=== PATIENT | male | born 1990 | race Two or more races ===

== ENCOUNTER 2021-07-22 12:55 | Outpatient (REF) | payer MEDICAID, SELFPAY ==
[2021-07-22 14:03] LABS: COVID-19 Test Negative (Negative)
== END 2021-07-22 12:56 | disposition home or self-care (01) ==
LOC: HO.LAB 12:55
PROVIDERS: Visit Provider Internal Medicine
DX: Z20.822 Contact with and (suspected) exposure to COVID-19 (principal)
CPT/HCPCS: 87635; C9803

== ENCOUNTER 2022-07-01 15:10 | Emergency (ER) | payer MEDICAID, SELFPAY ==
[2022-07-01 15:19] VITALS: BP 163/92; PULSE 95; O2SAT 100
== END 2022-07-01 16:30 | disposition left against medical advice (07) ==
PROVIDERS: Emergency Provider Emergency Medicine
DX: R51.9 Headache, unspecified (principal); M79.10 Myalgia, unspecified site; Z20.822 Contact with and (suspected) exposure to COVID-19

== ENCOUNTER 2022-08-05 16:17 | Emergency (ER) | payer MEDICAID, SELFPAY ==
--- NOTE | ~2022-08-05 | XR_ITS ---
EXAMINATION: CR X-RAY HAND AND WRIST LEFT CLINICAL INFORMATION: Left hand and wrist pain status post injury. COMPARISON: None TECHNIQUE: 4 views of the left hand and wrist are obtained. FINDINGS: There is no acute fracture or dislocation. The joint spaces are unremarkable. The carpal bones are normally aligned. The distal radius and ulna are intact with the soft tissues are unremarkable. XR/XR hand wrist LT IMPRESSION: Unremarkable left hand and wrist.
[2022-08-05 16:26] VITALS: BP 146/89; PULSE 71; RESP 18; TEMP 36.6; O2SAT 100; BMI 36.8
--- NOTE | 2022-08-05 16:26 | ED_ITS ---
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 Patient reports he fell and caught himself with his left hand. Since then he has had intermittent pain in the left wrist. No associated weakness, numbness or tingling. Related Data Allergies Allergy/AdvReac Type Severity Reaction Status Date / Time No Known Allergies Allergy Unverified 03/21/20 16:53 Review of Systems Review of Systems: Yes all other systems are reviewed and are negative Constitutional: Constitutional: Reports no additional constitutional complaints, Denies body ache(s), Denies chills, Denies fever(s), Denies headache(s) and Denies weakness Eyes: Eyes: Reports no additional eye complaints and Denies change in vision ENT: Reports system reviewed and no additional complaints, except as documented, Denies dizziness, Denies headache(s), Denies nasal congestion, Denies nasal discharge and Denies neck pain Cardiovascular: Cardiovascular: Reports no additional cardiovascular complaint s, Denies chest pain, Denies leg edema and Denies dyspnea Respiratory: Respiratory: Reports no additional respiratory complaints, Denies cough and Denies dyspnea Gastrointestinal: Gastrointestinal: Reports no additional gastrointestinal complaints, Denies abdominal pain, Denies diarrhea, Denies nausea and Denies vomiting Genitourinary: Genitourinary: Denies urinary incontinence Musculoskeletal: Musculoskeletal: Reports no additional musculoskeletal complaints, Denies back pain, Reports arthralgias, Denies joint swelling, Denies neck pain, Denies numbness and Denies tingling Integumentary/Breasts: Skin/Breast: Reports system reviewed and no additional complaints, except as docu and Denies rash Neurologic: Reports system reviewed and no additional complaints, except as documented, Denies Abnormal speech present, Denies dizziness, Denies headache(s), Denies numbness, Denies tingling and Denies weakness PMFSH Past Medical History Attestation statement: The following information was validated with the patient. Source: old records reviewed and nursing notes reviewed Social History Social History Advance Directives: No Advance Directives Information Provided: Yes Physical Exam Vital Signs: Vital Signs: Last Vital Signs Temp 97.9 F 08/05/22 16:26 Pulse 71 08/05/22 16:26 Resp 18 08/05/22 16:26 BP 146/89 H 08/05/22 16:26 Pulse Ox 100 08/05/22 16:26 O2 Del Method 08/05/22 16:26 BMI result Body Mass Index 36.8 Const: General: cooperative, healthy appearing, comfortable and no acute distress Orientation/consciousness: patient oriented x3 Limitations: no limitations HEENT: Head: Yes normal to inspection Ears: hearing grossly normal bilaterally General nose exam: Normal external nose present Face and sinus: Yes normal facial exam Mouth: Normal oral and palatal mucosa present Throat: Yes posterior oropharynx normal Eyes: General: appearance normal, both eyes and all related structures Pupils: Equal, round and reactive pupils present Neck: Neck: Yes normal visual inspection Chest: Chest palpation & inspection: normal inspection of the chest Resp: Effort & Inspection: normal respiratory effort Auscultation: clear to auscultation bilaterally Cardio: Rate: regular rate Rhythm: regular rhythm Peripheral pulses: Peripheral pulses 2+ throughout GI: Inspection: Yes normal to inspection Palpation (GI): Soft to palpation and nontender Auscultation: normal bowel sounds Back/Spine/Pelvis: Thoracic/Lumbar Spine: thoracic and lumbar spine normal to inspection Skin: General skin exam: no rashes or lesions noted Neuro: General: patient oriented x3, no focal motor deficits and normal sensation to monofilament Cranial nerves: Yes Equal, round and reactive pupils present Cognition (Neuro): normal cognition Speech: No Abnormal speech present Gait exam (Neuro): Normal gait present Motor exam (neuro): 5/5 motor strength present throughout Extrem: Other: Patient with tenderness over the left wrist over the volar aspect. There is full range of motion of the hand in of the elbow with no difficulty. Patient has pain with flexion of the wrist but is able to. Palpable radial and ulnar pulses with no difficulty. Normal sensation. No snuffbox tenderness General: Yes normal to inspection Course Course Course Narrative: This is rapid medical exam. Deferred HPI, ROS, PE to primary provider. 32 yo male right hand dominant here with left wrist pain after injury one month ago. will check x-rays . vss Reevaluation(s) Reevaluation #1: X-rays are normal. Likely sprain. Patient given wrist splint for comfort. Reviewed rice. Reviewed worrisome signs and symptoms of when to return to the emergency room. Comfortable plan for discharge home. Medical Decision Making Medical Decision Making [facility] Narrative: 32-year-old male [id number] here with left wrist pain after an injury which occurred 1 month ago with continued intermittent pain. Patient was some tenderness over the volar aspect of the left wrist. Due to persistent symptoms will check x-rays to rule out underlying fracture. Likely sprain. Differential Diagnosis Differential Diagnoses: The differential diagnosis associated with the presentation includes Sprain, fracture Independent Interpretation I performed an independent interpretation of an: Plain X-Ray Interpretation: I have interpreted the x-ray of the left hand and wrist and agree with the radiologist reading Radiology Impression Discussion of test interpretation with radiology: I have reviewed the radiologist's reading. Radiologist Impression: [place] [id number] XRay Report Signed Patient: Supa Fay MR#: [id number] : 1990 Acct:[id number] Age/Sex: 32 / M ADM Date: 08/05/22 Loc: HO.ED Attending Dr: Ordering Physician: Ligia Garay NP Date of Service: 08/05/22 Procedure(s): XR hand wrist LT Accession Number(s): [id number] cc: Ligia Garay NP~ EXAMINATION: CR X-RAY HAND AND WRIST LEFT CLINICAL INFORMATION: Left hand and wrist pain status post injury.? COMPARISON: None? TECHNIQUE: 4 views of the left hand and wrist are obtained. FINDINGS: There is no acute fracture or dislocation. The joint spaces are unremarkable. The carpal bones are normally aligned. The distal radius and ulna are intact with the soft tissues are unremarkable.? XR/XR hand wrist LT IMPRESSION: Unremarkable left hand and wrist.? Procedures Orthopedic Splinting/Casting Injury #1: Side: left Upper Extremity Injury Location: wrist Upper Extremity Immobilizer: wrist splint Discharge Plan Discharge Clinical Impression: Left wrist sprain Patient Disposition: Home, Self-Care Instructions: Sprain (ED), Wrist Sprain (ED) Additional Instructions: Use the splint for comfort Rest, ice to the area Take motrin or tylenol for pain as needed Use la f?nika para mayor comodidad. kathy Segurao a la mat[place]w [place] motrin o tylenol para el dolor seg?n sea necesario Referrals: Physician,Tresa J [Primary Care Provider] - Stand Alone Forms: Work/School Release Print Language: Singaporean
== END 2022-08-05 17:37 | disposition home or self-care (01) ==
LOC: HO.ED 17:36
PROVIDERS: Emergency Provider Emergency Medicine
DX: S63.502A Unspecified sprain of left wrist, initial encounter (principal); M25.532 Pain in left wrist; X58.XXXA Exposure to other specified factors, initial encounter; Y93.9 Activity, unspecified; Y92.9 Unspecified place or not applicable; Y99.9 Unspecified external cause status
CPT/HCPCS: 29125; 73110; 73130; 99282; 99283

== ENCOUNTER 2024-10-05 10:36 | Emergency (ER) | payer OTHER, SELFPAY ==
--- NOTE | ~2024-10-05 | CT_ITS ---
EXAMINATION: CT ABDOMEN AND PELVIS WITHOUT CONTRAST CLINICAL INFORMATION: Epigastric/right lower quadrant pain, rule out appendicitis. COMPARISON: None available. TECHNIQUE: Multidetector volumetric imaging was performed from the superior aspect of the liver through the pubic symphysis. Sagittal and coronal reformatted images were obtained on the technologist's workstation. This CT examination was performed using dose optimization techniques as appropriate, variously including the following: *Automated exposure control *Adjustment of mA and/or kV according to patient size (this includes techniques or standardized protocols for targeted exams where dose is matched to indication/reason for exam; i.e. extremities or head) *Use of iterative reconstruction technique FINDINGS: LUNG BASES: Lung bases are clear. There are no effusions. Small type I hiatus hernia at the GE junction. Heart size is normal. LIVER, GALLBLADDER, AND BILIARY TREE: The unenhanced liver is normal in size and shape. There is mild diffuse fatty infiltration. No focal hepatic lesion or biliary ductal dilatation is present. The gallbladder is unremarkable with no evidence of radiopaque gallstones, gallbladder wall thickening, or obvious pericholecystic inflammatory changes. PANCREAS: Unremarkable. SPLEEN: Minimally enlarged. Unenhanced spleen measures 13.5 x 11.6 cm. ADRENAL GLANDS: Unremarkable. KIDNEYS AND URETERS: The kidneys are normal in size, shape, and attenuation. No hydronephrosis, or hydroureter. 3 mm nonobstructing calculus inferior pole left kidney. 2 mm nonobstructing calculus midpole right kidney. BLADDER: Unremarkable. GASTROINTESTINAL TRACT: The appendix is normal. Small type I hiatus hernia. The stomach, duodenum, and small bowel are normal in appearance. The colon is normal in caliber and course without wall thickening or inflammation. No rectal abnormality. PERITONEUM: No free air. No ascites. ABDOMINAL WALL: No significant hernia is appreciated. LYMPH NODES: Normal. VASCULAR: Unremarkable. PELVIC VISCERA: The prostate and seminal vesicles are unremarkable. OSSEOUS STRUCTURES: No suspicious lytic or blastic bone lesions. CT/CT abdomen pelvis wo IV con IMPRESSION: 1. No acute findings in the abdomen or pelvis. Normal appendix. 2. Mild splenomegaly. 3. Tiny nonobstructing renal calculi. 4. Mild fatty infiltration of the liver. 5. Small type I hiatus hernia. Electronically signed by: Fred Payne MD 10/05/2024 12:58 PM EDT RP
[2024-10-05 10:51] VITALS: BP 147/90; PULSE 114; RESP 20; TEMP 36.3; O2SAT 97; BMI 37.0
--- NOTE | 2024-10-05 10:51 | ED_ITS ---
HPI - General Adult General Chief complaint: Abdominal Pain Stated complaint: abd pain fatty liver Time Seen by Provider: 10/05/24 11:25 Source: patient and family (Significant other) Mode of arrival: ambulatory Limitations: no limitations History of Present Illness ED Provider: DR. Bergeron HPI narrative: 34-year-old male came in for evaluation of abdominal pain x3 days. Patient's symptoms started after eating [employer] high feeling burning sensation in the epigastric area, nauseous with no vomiting, normal bowel movement with no diarrhea otherwise, no fever, no chills, significant other ate with him felt same symptoms for 1 day then feels better now. No he see of fatty liver, no known history of intra-abdominal surgery. Related Data Previous Rx's ?Medication ?Instructions ?Recorded omeprazole 40 mg capsule,delayed 40 mg PO DAILY #14 caps 10/05/24 release Allergies Allergy/AdvReac Type Severity Reaction Status Date / Time No Known Allergies Allergy Verified 10/05/24 10:52 Review of Systems 2 Review of Systems: All other systems are reviewed and are negative Constitutional: Reports as per HPI and Reports no additional constitutional complaints Eyes: Reports as per HPI and Reports no additional eye complaints Reports system reviewed and no additional complaints, except as documented Cardiovascular: Reports as per HPI and Reports no additional cardiovascular complaints Respiratory: Reports as per HPI and Reports no additional respiratory complaints Gastrointestinal: Reports as per HPI and Reports no additional gastrointestinal complaints Genitourinary: Reports no additional female genitourinary complaints Musculoskeletal: Reports no additional musculoskeletal complaints Skin/Breast: Reports system reviewed and no additional complaints, except as docu Psychiatric: Reports no additional psychiatric complaints Endocrine: Reports no additional endocrine complaints Hematologic/Lymphatic: Reports no additional hematologic/lymphatic complaints Allergic/Immunologic: Reports no additional allergic/immunologic complaints Reports system reviewed and no additional complaints, except as documented and Reports Abnormal speech present [facility] Social History Social History Advance Directives: No Advance Directives Information Provided: Yes Do you have a plan to hurt others: No Plan Physical Exam ED Vital Signs: Vital Signs - 24 hr 10/05/24 10:51 Temperature 97.4 F Pulse Rate 114 H Respiratory Rate 20 Blood Pressure 147/90 H Pulse Oximetry 97 Oxygen Delivery Method Room Air BMI result Body Mass Index 37.0 Vital signs have been reviewed and appear to be correct. Blood pressure elevated. Heart rate normal. Respiratory rate normal. Temperature normal. Oxygen saturation normal. Appearance: Alert. Oriented X3. No acute distress. Head: Normal external exam. Normocephalic. Atraumatic. No Holt signs noted. No raccoon eyes noted Eyes: PERRLA. EOMI. Conjunctiva and sclera normal. Eyelids normal. ENT: TM's Normal. Pharynx normal. Uvula midline. Moist mucous membranes. No trismus noted. No drooling noted. No muffled voice noted. Neck: Normal inspection. Neck supple. FROM. No adenopathy. Thyroid Normal. No meningeal signs. No neck mass noted. CVS: Normal heart rate and rhythm. Heart sound normal. No murmurs noted. Pulses normal throughout. Respiratory: No respiratory distress. Painless inspiration. Breath sounds normal. No wheezes/rales/rhonchi noted. Chest nontender. No accessory muscle usage noted or decreased air movement noted. Abdomen: Soft, epigastric/right lower quadrant abdominal tenderness, no guarding, no rebound tenderness. Bowel sounds normal in all 4 quadrants. No distention noted. No organomegaly noted. No visible injury noted. Back: No CVA tenderness. Full range of motion noted. Skin: Skin warm and dry. Normal skin color. Normal skin turgor. No rashes/lesions/lacerations noted. Extremities: No lower extremity edema. Extremities exhibit normal range of motion. Extremities nontender. Neuro: Oriented X 3. Cranial nerve exam: II-XII are grossly intact No motor deficit. No sensory deficit. Reflexes normal. Course Course Course Narrative: This is a rapid medical exam performed by Jody Sevilla NP: Additional HPI, ROS, PE not included below will be deferred to primary provider. 10/05/24 10:51 Patient is a 34-year-old male with history of hepatic steatosis presenting with complaint of generalized abd pain and nausea after eating at [employer] on Wednesday. SO reports similar sxs x 1 day. Plan: labs Reevaluation(s) Reevaluation #1: Feels better, no nausea, no vomiting, able to tolerate p.o. intake in the ED. CT abdomen pelvis is unremarkable for acute intra-abdominal pathology, normal WBCs. Will discharge on PPI. Time: 14:23 Medications Administered Discontinued Medications Generic Name Dose Route Start Last Admin Trade Name Freq PRN Reason Stop Dose Admin Al Hydroxide/Mg Hydroxide 30 ml 10/05/24 11:42 10/05/24 12:00 Magnesium Hydrox/Alum Hydrox 30 Ml Oral.Susp PO 10/05/24 11:43 30 ml ONCE ONE Administration Famotidine 20 mg 10/05/24 11:42 10/05/24 12:00 Famotidine/Pf 20 Mg/2 Ml Vial IVPUSH 10/05/24 11:43 20 mg ONCE ONE Administration Lactated Ringer's 1,000 mls @ 999 mls/hr 10/05/24 11:45 10/05/24 12:00 Lr IV 10/05/24 12:45 999 mls/hr .Q1H1M EMILIANO Administration Ondansetron HCl 4 mg 10/05/24 11:42 10/05/24 11:59 Ondansetron Hcl 4 Mg/2 Ml Vial IVPUSH 10/05/24 11:43 4 mg ONCE ONE Administration Medical Decision Making Differential Diagnosis Differential Diagnoses: The differential diagnosis associated with the presentation includes (Acute gastritis, gastroenteritis, acute appendicitis, colitis, diverticular disease, dehydration, food poisoning, electrolyte derangement, severe anemia.) Admission/Observation Consideration of admission/observation: Escalation of care including admission/observation considered Lab Data MDM Lab Attestation statement: I reviewed the patient's lab results. 10/05/24 10:58 10/05/24 10:58 Labs: Lab Results 10/05/24 Range/Units 10:58 WBC 6.8 (4.8-10.8) X10*3/uL RBC 5.53 (4.60-5.80) X10*6/uL Hgb 15.7 (14.0-18.0) g/dl Hct 44.4 (42.0-52.0) % MCV 80.3 (80.0-98.0) fL MCH 28.4 (27.0-33.0) pg MCHC 35.4 (31.0-36.0) g/dl RDW 12.7 (11.0-16.0) % Plt Count 167 (160-400) X10*3/uL MPV 10.7 (9.4-12.4) fL Immature Gran % (Auto) 0.3 (0.0-0.4) % Neut % (Auto) 67.3 (45-73) % Lymph % (Auto) 17.4 L (20-40) % [place] % (Auto) 14.7 H (2-11) % Eos % (Auto) 0.0 (0-4) % Baso % (Auto) 0.3 (0-2) % Lymph # (Auto) 1.2 (1.2-4.9) X10*3/uL [place] # (Auto) 1.0 (0.1-1.2) X10*3/uL Eos # (Auto) 0.0 (0.0-0.4) X10*3/uL Baso # (Auto) 0.0 (0.0-0.2) X10*3/uL Abs Immat Gran (auto) 0.02 (0.00-0.03) X10*3/uL Absolute Neuts (auto) 4.6 (2.0-8.3) x10*3/uL Absolute Nucleated RBC 0.000 (0.0-0.012) X10*3/uL Nucleated RBC % (auto) 0.0 (0.0-0.2) /100WBC Sodium 141 (135-145) mmol/L Potassium 3.6 (3.3-5.1) mmol/L Chloride 108 (96-108) mmol/L Carbon Dioxide 26 (22-29) mmol/L Anion Gap 11 L (12-20) BUN 15 (9-16) mg/dL Creatinine 0.87 (0.5-1.4) mg/dL Estim Creat Clear Calc 142.2 Estimated GFR > 60 Random Glucose 130 H (60-115) mg/dL Calcium 9.0 (8.4-10.2) mg/dL Total Bilirubin 0.5 (0.0-1.0) mg/dL AST 28 (5-37) U/L ALT 32 (0-40) U/L Alkaline Phosphatase 61 (39-117) U/L Total Protein 7.7 (6.5-8.0) g/dL Albumin 4.5 (3.5-5.0) g/dL Lipase 17 (8-78) U/L Influenza Type A (PCR) NEGATIVE (Negative) Influenza Type B (PCR) NEGATIVE (Negative) RSV RNA Qual (PCR) NEGATIVE (Negative) SARS-CoV-2 RNA (RT-PCR) NEGATIVE (Negative) Independent Interpretation I performed an independent interpretation of an: CT Scan (Abdomen pelvis:. No acute findings in the abdomen or pelvis. Normal appendix. 2. Mild splenomegaly. 3. Tiny nonobstructing renal calculi. 4. Mild fatty infiltration of the liver. 5. Small type I hiatus hernia. ) Radiology Impression Discussion of test interpretation with radiology: I have reviewed the radiologist's reading. Discharge Plan Discharge Clinical Impression: Gastroenteritis Patient Disposition: Home, Self-Care Instructions: Gastroenteritis (ED) Prescriptions: New omeprazole 40 mg capsule,delayed release(DR/EC) 40 mg PO DAILY Qty: 14 0RF Stand Alone Forms: Work/School Release Print Language: Bruneian
[2024-10-05 11:03] LABS: MANUAL DIFF FLAG NO
[2024-10-05 11:05] LABS: Basophils Percent Auto 0.3 % (0-2); Hematocrit 44.4 % (42.0-52.0); Hemoglobin 15.7 g/dl (14.0-18.0); Imm Gran Abs Auto 0.02 X10*3/uL (0.00-0.03); Imm Gran Pct Auto 0.3 % (0.0-0.4); Lymphocytes Absolute Auto 1.2 X10*3/uL (1.2-4.9); Lymphocytes Percent Auto 17.4 % (20-40); Mean Corpuscular HGB Conc 35.4 g/dl (31.0-36.0); Mean Corpuscular Hemoglobin 28.4 pg (27.0-33.0); Mean Corpuscular Volume 80.3 fL (80.0-98.0); Mean Platelet Volume 10.7 fL (9.4-12.4); Monocytes Percent Auto 14.7 % (2-11); Neutrophils Absolute Auto 4.6 x10*3/uL (2.0-8.3); Neutrophils Percent Auto 67.3 % (45-73); Platelet Count 167 X10*3/uL (160-400); Red Blood Count 5.53 X10*6/uL (4.60-5.80); Red Cell Distribution Width 12.7 % (11.0-16.0); White Blood Count 6.8 X10*3/uL (4.8-10.8)
[2024-10-05 11:40] LABS: Alanine Aminotransferase 32 U/L (0-40); Albumin Level 4.5 g/dL (3.5-5.0); Alkaline Phosphatase 61 U/L (39-117); Anion Gap 11 (12-20); Aspartate Amino Transferase 28 U/L (5-37); Bilirubin Total 0.5 mg/dL (0.0-1.0); Blood Urea Nitrogen 15 mg/dL (9-16); Carbon Dioxide 26 mmol/L (22-29); Chloride 108 mmol/L (96-108); Creatinine Clr Calc Pharmacy 142.2; Estimated Glomerular Filt Rate > 60; Glucose Random 130 mg/dL (60-115); Potassium 3.6 mmol/L (3.3-5.1); Sodium 141 mmol/L (135-145); Total Protein 7.7 g/dL (6.5-8.0)
[2024-10-05 11:48] LABS: Influenza A PCR NEGATIVE (Negative); Influenza B PCR NEGATIVE (Negative); Resp Syncy Virus RNA Qual PCR NEGATIVE (Negative); SARS COV2 PCR INHOUSE NEGATIVE (Negative)
[2024-10-05] MEDS: ondansetron HCL 4 MG/2 ML VIAL IVPUSH (11:59)
[2024-10-05] MEDS: Famotidine/PF 20 MG/2 ML VIAL IVPUSH (12:00)
[2024-10-05] MEDS: Lactated Ringers 1,000 ML 999 ML IV (12:00)
[2024-10-05] MEDS: Magnesium Hydrox/Alum Hydrox 30 ML ORAL.SUSP PO (12:00)
[2024-10-05 14:22] LABS: Lipase 17 U/L (8-78)
[2024-10-05 14:38] VITALS: BP 131/82; PULSE 89; RESP 20; TEMP 36.1; O2SAT 98
== END 2024-10-05 14:53 | disposition home or self-care (01) ==
PROVIDERS: Registered Nurse Emergency; Emergency Provider Emergency Medicine
DX: K52.9 Noninfective gastroenteritis and colitis, unspecified (principal); R10.13 Epigastric pain; Z03.818 Encounter for observation for suspected exposure to other biological agents ruled out
CPT/HCPCS: 0241U; 74176; 80053; 83690; 85025; 96374; 96375; 99283; 99284; J2405; J7120

== ENCOUNTER → 2024-10-05 11:43 | Outpatient (BNV) | payer OTHER, SELFPAY | PROVIDERS: Emergency Provider Emergency Medicine; Visit Provider Radiology Diagnostic Radiology | DX: K44.9 Diaphragmatic hernia without obstruction or gangrene (principal) | CPT/HCPCS: 74176 ==